=== PATIENT | female | born 1950 | race Caucasian/White ===

== ENCOUNTER 2023-05-13 11:53 | Emergency (ER) | payer MEDICARE, OTHER, SELFPAY ==
[2023-05-13 11:58] VITALS: BP 154/90
--- NOTE | 2023-05-13 12:58 | ED.GENMED ---
History of Present Illness
General
Chief Complaint: Abdominal Pain
Source: patient
Exam Limitations: none
Time Seen by Provider: 05/13/23 12:39
Travel History
Have you had any contact with someone who has COVID-19?: No
Do you have any symptoms of coronavirus? Fever > 100 degrees, chills, cough, shortness of breath, sore throat, loss of taste or smell, muscle aches, or headache?: No
History of Present Illness
History of Present Illness:
See MDM
Past History
Past History
ED Past Medical History: HTN
ED Past Surgical History: Appendectomy
Phy Exam
Physical Exam
Physical Exam:
See MDM
Course
Orders/Labs/Results
Orders:
Orders
05/13/23 12:50
CT Abd/pelvis W Iv Cont Urgent
Comment: hx pancreatitis, unable to toelrate PO
Reason For Exam: mid abd pain
0.9% Sodium Chloride 1000 ml [Nss] 1,000 ml IV BOLUS
HYDROmorphone [Dilaudid] 1 mg IV NOW STA
Ondansetron Injectable [Zofran] 4 mg IV NOW STA
05/13/23 12:55
Ketorolac [Toradol] 30 mg IV NOW STA
05/13/23 13:13
Basic Metabolic Panel Urgent
Complete Blood Count/With Diff Urgent
Lipase Urgent
05/13/23 15:26
Amoxicillin 875 mg/Clav 125 mg [Augmentin 875 mg/125 mg] 1 tablet PO NOW STA
Ondansetron Injectable [Zofran] 4 mg IV NOW STA
Abnormal Lab Results
05/13/23
13:13
RBC 3.89 L 10^6/uL
(4.20-5.40)
Hct 36.9 L %
(37.0-47.0)
MCH 31.9 H pg
(27.0-31.0)
05/13/23 13:13
05/13/23 13:13
Vital Signs
Initial and Last Documented VS:
Initial Vital Signs
Temp Pulse Resp BP Pulse Ox
97.9 F 75 16 154/90 97
05/13/23 11:58 05/13/23 11:58 05/13/23 11:58 05/13/23 11:58 05/13/23 11:58
Last Documented Vital Signs
Temp Pulse Resp BP Pulse Ox
97.9 F 75 16 154/90 97
05/13/23 11:58 05/13/23 11:58 05/13/23 11:58 05/13/23 11:58 05/13/23 11:58
MDM/Problems Addressed
Differential Diagnosis Includes:
HPI and MDM Narrative:
73-year-old female presenting with abdominal pain for the past several weeks. Patient states she believes is another pancreatitis attack. Patient states the same thing occurred several years ago. Denies alcohol use. Patient is having trouble
with food and water intake due to pain. Patient has chronic back pain and states her hydrocodone is not helping her abdominal pain.
Given her history, will obtain basic blood work including lipase levels. Given age and abdominal pain, will obtain CT abdomen/pelvis
Physical exam
General: Mildly uncomfortable
HEENT: protecting airway. Mild dry mucous membrane
Neck: appears supple
CV: No evidence of cyanosis
Resp: No accessory muscle use
Abd: Non-distended. Epigastric and mid abdominal pain. No rebound
Extremities: No deformities
Neuro: alert
Psych: Normal affect
Skin: Intact
Problems Addressed including Acute and Chronic Conditions affecting care:
1. Abdominal pain
Acuity: acute
Prognosis: stable
Details: Patient given IV pain medicine. Will obtain pancreas levels and CT
Updates
Lipase normal, CT references possible colitis. Patient does acknowledge cramping abdominal pain that is worse when she eats and mild diarrhea. Will start Augmentin and discussed the importance of PCP follow-up
Differential Diagnosis (but not limited to): Pancreatitis, constipation, colitis
Testing considered: Urinalysis but she denies complaints
Drug therapy (if applicable): OTC meds, please see d/c instruction regarding Rx drugs
Amount and/or Complexity of Data Reviewed
Clinical info obtained from: Patient
External data reviewed: N/A
Labs I independently reviewed (but not limited to): Lipase normal
Radiology: The CT scan was personally and independently reviewed. In addition, official CT report reviewed.
Pulse Ox: not hypoxic
EKG independently reviewed: N/A
Patient Relations Specialist: N/A
Critical Care: N/A
Risk of Complication:
Social Determinants of health: Good social support
Discussed with other providers: N/A
Escalation of Care includes Admit/Obs: After being observed in the Emergency Department, pt stable for discharge.
Occasional wrong word or 'sound a like' substitutions may have occurred due to the inherent limitations of voice recognition software. Read the chart carefully and recognize, using context, where substitutions have occurred.
*Critical Care Note
Total Time (30-74mins, 75-104mins- exclusive of procedures): Not Applicable
ED Attending Note
-
Portions of this chart may have been created with voice recognition software.� Occasional wrong word or��sound alike� substitutions may have occurred due to the inherent limitations of voice recognition software.
Discharge Plan
Departure
Patient Disposition: Home (Routine Discharge)
Date of Disposition: 05/13/23
Time of Disposition: 15:26
Patient with high blood pressure during this ER visit?: Yes
Discharge Problem:
Colitis
Instructions: BLOOD PRESSURE
Prescriptions:
New
ondansetron 4 mg Tablet,Disintegrating
4 mg PO BIDPRN PRN (Reason: nausea/vomiting) Qty: 14 0RF
amoxicillin-pot clavulanate 875-125 mg tablet
1 tab PO BID Qty: 14 0RF
No Action
cetirizine 10 MG tablet
10 mg PO DAILY PRN (Reason: hay fever)
hydrocodone-acetaminophen [[place]] 1 EACH tablet
1 ea PO Q6H PRN (Reason: neck pain)
quetiapine 100 MG tablet
100 mg PO BID
gabapentin 300 MG capsule
300 mg PO TID
lamotrigine 100 MG tablet
200 mg PO BID
ezetimibe-simvastatin 1 TABLET tablet
1 tab PO DAILY
duloxetine 20 MG capsule,delayed release(DR/EC)
20 mg PO BID
tizanidine 2 MG tablet
2 - 6 mg PO BID PRN (Reason: pain) Qty: 30 0RF
Referrals:
Kirill Norton CRNP [Family Provider] -
Activity Restrictions/Additional Instructions:
Please return for any worsening symptoms.
You may return at any time if you have further concerns.
Please follow up with your doctor at the first available appointment, preferably this week.
Thank you for choosing [facility].
Interventions
Interventions:
*Risk Screen - Suicide Last Done: 05/13/23 11:58
*Neglect/Abuse Screening Last Done: 05/13/23 11:58
*ED COVID-19 Vaccine History Last Done: 05/13/23 11:58
[2023-05-13] MEDS: ZOFRAN 4 MG IV ×2 (13:03→15:34)
[2023-05-13] MEDS: DILAUDID 1 MG IV (13:04)
[2023-05-13] MEDS: TORADOL 30 MG IV (13:04)
[2023-05-13] MEDS: NSS 1000 IV (13:05)
[2023-05-13 13:14] VITALS: BMI 25.8
[2023-05-13 13:32] LABS: % Basophils 0.6 % (0-2); % Eosinophils 1.4 % (0-6); % Immature Granulocytes 0.2 % (0-0.5); % Lymphocytes 21.8 % (20.5-51.1); % Monocytes 7.4 % (1.7-9.3); % Neutrophils 68.6 % (42.2-75.2); Absolute Eosinophils 0.1 10^3/uL (0-0.7); Absolute Lymphocytes 1.4 10^3/uL (1.2-3.4); Absolute Monocytes 0.5 10^3/uL (0.1-0.6); Absolute Neutrophils 4.4 10^3/uL (1.4-6.5); Hematocrit 36.9 % (37.0-47.0); Hemoglobin 12.4 g/dL (12.0-16.0); Mean Corp Hgb Conc. 33.6 g/dL (33.0-37.0); Mean Corpuscular Hgb 31.9 pg (27.0-31.0); Mean Corpuscular Volume 94.9 fL (81.0-99.0); Mean Platelet Volume 9.5 fL (7.4-10.4); Nucleated Red Blood Cells % 0 %; Platelet Count 276 10^3/uL (130-400); Red Blood Cell Count 3.89 10^6/uL (4.20-5.40); Red Cell Dist. Width 12.1 % (11.5-14.5); White Blood Cell Count 6.3 10^3/uL (4.8-10.8)
[2023-05-13 13:55] LABS: Blood Urea Nitrogen 14 mg/dl (7-17); Calcium 9.8 mg/dl (8.4-10.2); Carbon Dioxide 29 mmol/L (22-30); Chloride 102 mmol/L (98-107); Estimated Creatinine Clearance 58 ml/min; Glucose 95 mg/dl (70-99); Lipase 75 U/L (23-300); Sodium 135 mmol/L (135-145); eGFR > 60.00
[2023-05-13] MEDS: AUGMENTIN 875 MG/125 MG 1 TABLET PO (15:34)
== END 2023-05-13 16:13 | disposition home or self-care (01) ==
LOC: EMR 11:53
PROVIDERS: EMERGENCY PHYSICIAN Student in an Organized Health Care Education/Training Program; FAMILY PHYSICIAN Nurse Practitioner Adult Health
DX: K52.9 Noninfective gastroenteritis and colitis, unspecified (principal); I10 Essential (primary) hypertension
CPT/HCPCS: 99284; 96374; 96375 ×2; 96361; 96376; 74177; 80048; 83690; 85025; Q9967

== ENCOUNTER 2023-07-14 21:01 | Emergency (ER) | payer MEDICARE, OTHER, SELFPAY ==
[2023-07-14 21:23] VITALS: BMI 26.3
--- NOTE | 2023-07-14 21:35 | ED.GENMED ---
History of Present Illness
General
Chief Complaint: Head Injury
Time Seen by Provider: 07/14/23 21:17
Travel History
Have you had any contact with someone who has COVID-19?: No
Do you have any symptoms of coronavirus? Fever > 100 degrees, chills, cough, shortness of breath, sore throat, loss of taste or smell, muscle aches, or headache?: No
History of Present Illness
History of Present Illness:
HPI: 3 days ago, the patient was struck by a car door in the left side of the forehead. She had a headache at that time. She went to urgent care yesterday as she had some blurred vision and was felt to likely have a concussion. She saw PMD today
who suggested coming here. A few hours ago for about 15 minutes, she developed reddish clear discharge on the right nostril which is since resolved. She does not feel confused. She had a headache that was rather severe this morning but resolved
with her chronic [place] that she normally takes for history of cervical and other back surgeries.
EXAM:
GENERAL: Well appearing in no distress
CERVICAL SPINE: No midline c-spine tenderness with excellent AROM
HEAD: There is older appearing ecchymosis to the left side of the forehead
CHEST: No chest wall tenderness
LUNGS: No respiratory distress
ABDOMEN: No abdominal tenderness, no peritoneal signs
EXTREMITIES: Normal active range of motion, no tenderness
NEURO: Excellent strength all extremities, appropriate mental status, normal speech/language
TIME OF INITIAL ENCOUNTER: 9:30 PM
NUMBER AND COMPLEXITY OF PROBLEMS ADDRESSED AT THE ENCOUNTER
� Chronic conditions affecting care: Fibromyalgia, chronic back pain, high blood pressure, hyperlipidemia, hypothyroidism, bipolar
� Acute Exacerbation and/or Progression of Chronic Illness: This is an acute problem
� Differential Diagnosis includes: Intracranial hemorrhage, concussion, CSF leak unlikely
AMOUNT AND/OR COMPLEXITY OF DATA TO BE REVIEWED AND ANALYZED
� I performed an independent evaluation of and my interpretation is:
EKG:
CT: CT imaging suggest the possibility of normal pressure hydrocephalus as there is some dilatation of the ventricles, no bleeding noted
X-rays:
Laboratory Studies:
Other:
� Review of other/old records: I reviewed imaging studies�she had abdomen/pelvis CT imaging 2 months ago
� Clinical information was obtained by an independent historian: at bedside
� Prescriptions/Medications Considered but not given:
� Further testing considered but not performed:
RISK OF COMPLICATIONS AND/OR MORBIDITY OR MORTALITY OF PATIENT MANAGEMENT
� Social determinants of health affecting care: Lives at home
� Discussion with other providers:
� Escalation of care including admission/observation vs risk of discharge considered: Will obtain CT imaging given the intermittently severe headache along with reddish clear discharge that she had earlier from the nose.
Currently she has a NIH stroke scale of 0 and GCS 15. No focal findings on neurologic examination. On reassessment at 12:44 AM, the had no further episodes of discharge from the nostril. I informed patient of the CT findings. She has a normal
neurologic examination.
Past History
Past History
ED Past Medical History: HTN
ED Past Surgical History: Appendectomy
Phy Exam
Physical Exam
Physical Exam:
See HPI
Course
Orders/Labs/Results
Orders:
Orders
07/14/23 21:[address] [CT Head W/o Iv Contrast] Urgent
Comment:
Reason For Exam: head injury
07/14/23 22:18
Cervical Spine wo Contrast CT [CT Cervical Spine W/o Iv Contr] Urgent
Comment:
Reason For Exam: head injury, c/o neck pain
Vital Signs
Initial and Last Documented VS:
Initial Vital Signs
Temp Pulse Pulse Ox
98.1 F 77 99
07/14/23 21:08 07/14/23 21:08 07/14/23 21:08
Last Documented Vital Signs
Temp Pulse BP Pulse Ox
98.1 F 65 115/69 95
07/14/23 21:08 07/14/23 23:00 07/14/23 23:00 07/14/23 23:30
*Critical Care Note
Total Time (30-74mins, 75-104mins- exclusive of procedures): Not Applicable
ED Attending Note
-
Portions of this chart may have been created with voice recognition software.� Occasional wrong word or��sound alike� substitutions may have occurred due to the inherent limitations of voice recognition software.
Discharge Plan
Departure
Patient Disposition: Home (Routine Discharge)
Date of Disposition: 07/15/23
Time of Disposition: 00:43
Patient with high blood pressure during this ER visit?: No
Discharge Problem:
Head injury
Instructions: Head Injury in Adults (DC)
Prescriptions:
No Action
cetirizine 10 MG tablet
10 mg PO DAILY PRN (Reason: hay fever)
hydrocodone-acetaminophen [[place]] 1 EACH tablet
1 ea PO Q6H PRN (Reason: neck pain)
quetiapine 100 MG tablet
100 mg PO BID
gabapentin 300 MG capsule
300 mg PO TID
lamotrigine 100 MG tablet
200 mg PO BID
ezetimibe-simvastatin 1 TABLET tablet
1 tab PO DAILY
duloxetine 20 MG capsule,delayed release(DR/EC)
20 mg PO BID
tizanidine 2 MG tablet
2 - 6 mg PO BID PRN (Reason: pain) Qty: 30 0RF
ondansetron 4 mg Tablet,Disintegrating
4 mg PO BIDPRN PRN (Reason: nausea/vomiting) Qty: 14 0RF
amoxicillin-pot clavulanate 875-125 mg tablet
1 tab PO BID Qty: 14 0RF
Referrals:
Alex Maria MD [Active] - Follow up in 1 week
Kirill Norton CRNP [Family Provider] -
Activity Restrictions/Additional Instructions:
The CAT scan of the brain shows no bleeding. The CAT scan of the brain did show some dilation of the ventricle that could be seen with 'normal pressure hydrocephalus'. I have given the contact information for a neurologist�this would have nothing
to do with the injury. This could just be a normal variant. The CAT scan of the cervical spine shows no injury to the neck.
Interventions
Interventions:
*Risk Screen - Suicide Last Done: 07/14/23 21:08
*General Assessment Last Done: 07/14/23 21:08
*Neglect/Abuse Screening Last Done: 07/14/23 21:08
*ED COVID-19 Vaccine History Last Done: 07/14/23 21:23
ED- Neurological Assessment Last Done: 07/14/23 21:23
ED-Skin Assessment Last Done: 07/14/23 21:23
Discharge Date and Time
Print Language: GREEK
[2023-07-14 22:00] VITALS: BP 109/65
[2023-07-14 23:00] VITALS: BP 115/69
== END 2023-07-15 00:53 | disposition home or self-care (01) ==
LOC: EMR 21:01
PROVIDERS: EMERGENCY PHYSICIAN Emergency Medicine; FAMILY PHYSICIAN Nurse Practitioner Adult Health
DX: S09.90XA Unspecified injury of head, initial encounter (principal); W20.8XXA Other cause of strike by thrown, projected or falling object, initial encounter
CPT/HCPCS: 99284; 70450; 72125

== ENCOUNTER → 2024-05-23 10:54 | Outpatient (REF) | payer MEDICARE, OTHER, SELFPAY | LOC: HWRAD 10:54 | PROVIDERS: ATTENDING PHYSICIAN Internal Medicine | DX: R10.9 Unspecified abdominal pain (principal) | CPT/HCPCS: 71101; 76775 ==

== ENCOUNTER → 2024-05-28 12:38 | Outpatient (REF) | payer MEDICARE, OTHER, SELFPAY | LOC: RCS 12:38 | PROVIDERS: ATTENDING PHYSICIAN Nurse Practitioner; FAMILY PHYSICIAN Nurse Practitioner Adult Health | DX: R06.09 Other forms of dyspnea (principal) | CPT/HCPCS: 93306 ==

== ENCOUNTER 2024-06-29 | Emergency (ER) | payer MEDICARE, OTHER, SELFPAY ==
[2024-06-29 00:07] VITALS: BP 133/82
[2024-06-29 00:24] VITALS: BP 134/78
--- NOTE | 2024-06-29 00:46 | ED.GENMED ---
History of Present Illness
General
Chief Complaint: Chest Pain
Source: patient
Exam Limitations: none
Time Seen by Provider: 06/29/24 00:14
Nursing documentation reviewed up to this point in time: agreed with
History of Present Illness
History of Present Illness:
pt is a 74 y/o F with h/o htn, hld, chronic back pain, pancreatitis remotely (unclear cause)
here with epigastricp ain into her chest tonight and wrapping around RUQ to back that reminds her of pancreatitis
started after eating dinner 7 pm tonight
she had cholecystectomy in the past
previuos episode cp 2 years ago , pt had cath that was clean, followed by dr. daily
she has had mild nausea, no vomiting
tried pepto without relief
pain is 8/10
no h/o bowel obstruction
has had previuos inguinal hernia repairs, sheryl, hysterectomy
Past History
Past History
ED Past Medical History: HTN
ED Past Surgical History: Appendectomy
Social History
Tobacco: Non-smoker
Alcohol: None
Drug: None
Personal:
Living: with family
Review of Systems
Review of Systems
Allergies reviewed?: Yes
All Other Systems: Not applicable
Phy Exam
Physical Exam
Physical Exam:
GENERAL: Alert , looks uncomfortable slightly
EYE: pupils equal and reactive
NECK: Supple
ENT: o/p clr, mmm.
CARDIAC: Regular rate and rhythm . No murmur appreciated
LUNGS: Clear breath sounds bilaterally, no acute respiratory distress, no wheezes/rales/rhonchi
ABDOMEN: Soft, mild epigastric tenderness, no r/g, no cvat, normal bowel sounds
NEUROLOGICAL: Alert and oriented, no focal neuro deficits
SKIN: Warm and dry, skin intact. Slightly pale, not diaphoretic
MUSCULOSKELETAL: No edema, well perfused. neg sarah's sign
PSYCH: Normal and appropriate interaction.
Scores
Heart Score for Chest Pain Patients
STEMI patient?: No
History: Moderately Suspicious
ECG: Normal
Age: >/= 65 years
Risk Factors: 1 or 2 Risk Factors
Troponin: </= Normal Limit
Heart Score for Chest Pain Patients: 4
Heart Score Risk: 20.3% MACE over next 6 weeks
Course
Orders/Labs/Results
Orders:
Orders
06/29/24 00:11
Electrocardiogram (*1) Urgent
Reason for Study: Chest Pain
EKG- Treatment ONCE
06/29/24 00:45
HYDROmorphone [Dilaudid] 0.5 mg IV NOW STA
Ondansetron Injectable [Zofran] 4 mg IV NOW STA
Pantoprazole [Protonix IV] 40 mg IV NOW STA
06/29/24 00:49
Complete Blood Count/With Diff Urgent
Comprehensive Metabolic Panel Urgent
Lipase Urgent
Troponin I Urgent
06/29/24 01:21
Iohexol [Omnipaque] See Protocol PO NOW STA
06/29/24 01:29
CT Chest/abd/pelvis Angio W/wo Urgent
Comment:
Reason For Exam: chest pain epigastirc pain to the back
06/29/24 02:22
EKG- Treatment ONCE
06/29/24 03:00
Electrocardiogram (*1) Urgent
Reason for Study: Chest Pain
06/29/24 03:02
Troponin I Urgent
Abnormal Lab Results
06/29/24
00:49
WBC 12.3 H 10^3/uL
(4.8-10.8)
RBC 3.42 L 10^6/uL
(4.20-5.40)
Hgb 11.4 L g/dL
(12.0-16.0)
Hct 32.6 L %
(37.0-47.0)
MCH 33.3 H pg
(27.0-31.0)
Abs Immat Gran (auto) 0.1 H 10^3/uL
(0-0.05)
Absolute Neuts (auto) 10.9 H 10^3/uL
(1.4-6.5)
Absolute Lymphs (auto) 0.4 L 10^3/uL
(1.2-3.4)
Absolute Monos (auto) 0.7 H 10^3/uL
(0.1-0.6)
Neutrophils % 89.1 H %
(42.2-75.2)
Lymphocytes % 3.6 L %
(20.5-51.1)
Sodium 134 L mmol/L
(135-145)
BUN 25 H mg/dl
(7-17)
Glucose 117 H mg/dl
(70-99)
Total Protein 5.8 L g/dl
(6.3-8.2)
06/29/24 00:49
06/29/24 00:49
Vital Signs
Initial and Last Documented VS:
Initial Vital Signs
Temp Pulse Resp BP Pulse Ox
36.8 C 82 20 133/82 96
06/29/24 00:07 06/29/24 00:07 06/29/24 00:07 06/29/24 00:07 06/29/24 00:07
Last Documented Vital Signs
Temp Pulse Resp BP Pulse Ox
36.7 C 71 12 109/64 95
06/29/24 00:49 06/29/24 04:30 06/29/24 04:30 06/29/24 04:00 06/29/24 04:30
MDM/Problems Addressed
Differential Diagnosis Includes:
pancreatitis, aortic dissection, PE, ACS, bowel obstruction, gastritis
MDM/Problems Addressed:
74 y/o F
remote pancreatiis
multiple abd surgeries previously
card cath clean 2 years ago
epigastric pain to chest and back at 7 pm
worsening gradually
pt is uncomofrtable
pain reminds her of her pancreatitis
she denies alcohol use
no vomiting
stable bp
ekg nonischemic
w/u with labs show mild leukocytosis, neg trop;
d/w ed attending
will ct c/a/p
at minimum pt will need reapt trop CT discussed with radiologist. Patient has findings
Of mild enteritis, otherwise no aortic syndrome or PE. Patient feels much more comfortable after pain meds. Discussed with ED attending. Will discharge pending second troponin and EKG at 3 AM.
*Critical Care Note
Total Time (30-74mins, 75-104mins- exclusive of procedures): Not Applicable
ED Attending Note
-
Portions of this chart may have been created with voice recognition software.� Occasional wrong word or��sound alike� substitutions may have occurred due to the inherent limitations of voice recognition software.
Discharge Plan
Departure
Patient Disposition: Home (Routine Discharge)
Date of Disposition: 06/29/24
Time of Disposition: 04:24
Patient with high blood pressure during this ER visit?: No
Discharge Problem:
Chest pain
Instructions: Chest Pain DCA Follow Up
Prescriptions:
No Action
cetirizine 10 MG tablet
10 mg PO DAILY PRN (Reason: hay fever)
hydrocodone-acetaminophen [[place]] 1 EACH tablet
1 ea PO Q6H PRN (Reason: neck pain)
quetiapine 100 MG tablet
100 mg PO BID
gabapentin 300 MG capsule
300 mg PO TID
lamotrigine 100 MG tablet
200 mg PO BID
ezetimibe-simvastatin 1 TABLET tablet
1 tab PO DAILY
duloxetine 20 MG capsule,delayed release(DR/EC)
20 mg PO BID
tizanidine 2 MG tablet
2 - 6 mg PO BID PRN (Reason: pain) Qty: 30 0RF
ondansetron 4 mg Tablet,Disintegrating
4 mg PO BIDPRN PRN (Reason: nausea/vomiting) Qty: 14 0RF
amoxicillin-pot clavulanate 875-125 mg tablet
1 tab PO BID Qty: 14 0RF
Referrals:
Shahbaz Milton MD [Family Provider] -
Interventions
Interventions:
*Risk Screen - Suicide Last Done: 06/29/24 00:07
*General Assessment Last Done: 06/29/24 01:05
*Neglect/Abuse Screening Last Done: 06/29/24 00:07
*ED- Fall Risk Assessment Last Done: 06/29/24 00:07
*ED COVID-19 Vaccine History Last Done: 06/29/24 00:07
*Nursing Disposition Last Done: 06/29/24 04:46
ED- Cardiac Assessment Last Done: 06/29/24 01:06
Discharge Date and Time
Discharge Date/Time: 06/29/24 04:47
Print Language: DJIBOUTIAN
[2024-06-29 00:57] VITALS: BMI 23.9
[2024-06-29] MEDS: ZOFRAN 4 MG IV (00:58)
[2024-06-29] MEDS: DILAUDID 0.5 MG IV (00:58)
[2024-06-29 00:59] LABS: % Basophils 0.2 % (0-2); % Eosinophils 0.8 % (0-6); % Immature Granulocytes 0.4 % (0-0.5); % Lymphocytes 3.6 % (20.5-51.1); % Monocytes 5.9 % (1.7-9.3); % Neutrophils 89.1 % (42.2-75.2); Absolute Eosinophils 0.1 10^3/uL (0-0.7); Absolute Immature Granulocytes 0.1 10^3/uL (0-0.05); Absolute Lymphocytes 0.4 10^3/uL (1.2-3.4); Absolute Monocytes 0.7 10^3/uL (0.1-0.6); Absolute Neutrophils 10.9 10^3/uL (1.4-6.5); Hematocrit 32.6 % (37.0-47.0); Hemoglobin 11.4 g/dL (12.0-16.0); Mean Corpuscular Hgb 33.3 pg (27.0-31.0); Mean Corpuscular Volume 95.3 fL (81.0-99.0); Mean Platelet Volume 9.7 fL (7.4-10.4); Nucleated Red Blood Cells % 0 %; Platelet Count 191 10^3/uL (130-400); Red Blood Cell Count 3.42 10^6/uL (4.20-5.40); Red Cell Dist. Width 12.4 % (11.5-14.5); White Blood Cell Count 12.3 10^3/uL (4.8-10.8)
[2024-06-29] MEDS: PROTONIX IV 40 MG IV (00:59)
[2024-06-29 01:01] VITALS: BP 132/74
[2024-06-29 01:10] LABS: ALT (SGPT) 24 U/L (0-35); AST (SGOT) 29 U/L (14-36); Albumin 3.9 g/dl (3.5-5.0); Alkaline Phosphatase 47 U/L (38-126); Blood Urea Nitrogen 25 mg/dl (7-17); Calcium 9.6 mg/dl (8.4-10.2); Carbon Dioxide 26 mmol/L (22-30); Chloride 103 mmol/L (98-107); Estimated Creatinine Clearance 51 ml/min; Glucose 117 mg/dl (70-99); Lipase 56 U/L (23-300); Potassium 4.2 mmol/L (3.5-5.1); Sodium 134 mmol/L (135-145); Total Bilirubin 0.5 mg/dl (0.2-1.3); Total Protein 5.8 g/dl (6.3-8.2); eGFR > 60.00
[2024-06-29 01:38] LABS: Troponin I < 0.012 ng/ml
[2024-06-29 02:00] VITALS: BP 133/71
[2024-06-29 03:00] VITALS: BP 117/60
[2024-06-29 04:00] VITALS: BP 109/64
[2024-06-29 04:16] LABS: Troponin I < 0.012 ng/ml
== END 2024-06-29 04:47 | disposition home or self-care (01) ==
LOC: EMR
PROVIDERS: Physician Assistant; EMERGENCY PHYSICIAN Student in an Organized Health Care Education/Training Program; FAMILY PHYSICIAN Internal Medicine
DX: R07.9 Chest pain, unspecified (principal); R10.13 Epigastric pain; E78.5 Hyperlipidemia, unspecified; I10 Essential (primary) hypertension; G89.29 Other chronic pain; Z90.49 Acquired absence of other specified parts of digestive tract
CPT/HCPCS: 96374; 96375; 99284; 71275; 74174; 80053; 83690; 84484; 85025; 93005; Q9967

== ENCOUNTER → 2025-01-15 10:32 | Outpatient (REF) | payer MEDICARE, OTHER, SELFPAY | LOC: RAD 10:32 | PROVIDERS: ATTENDING PHYSICIAN Nurse Practitioner Acute Care; FAMILY PHYSICIAN Internal Medicine | DX: G89.29 Other chronic pain (principal); M54.9 Dorsalgia, unspecified; M25.552 Pain in left hip; Z91.81 History of falling | CPT/HCPCS: 72040; 72072; 72100; 73502 ==

== ENCOUNTER → 2025-01-17 11:28 | Outpatient (REF) | payer MEDICARE, OTHER, SELFPAY | LOC: RAD 11:28 | PROVIDERS: ATTENDING PHYSICIAN Nurse Practitioner Acute Care | DX: M25.551 Pain in right hip (principal) | CPT/HCPCS: 73502 ==

== ENCOUNTER 2025-04-10 12:44 | Outpatient (RCR) | payer MEDICARE, OTHER, SELFPAY | END 2025-04-10 23:59 | disposition home or self-care (01) | LOC: RPT 12:44 | PROVIDERS: ATTENDING PHYSICIAN Orthopaedic Surgery; FAMILY PHYSICIAN Internal Medicine | DX: M48.062 Spinal stenosis, lumbar region with neurogenic claudication (principal); Z73.6 Limitation of activities due to disability; M62.81 Muscle weakness (generalized); M79.605 Pain in left leg; M79.604 Pain in right leg; R26.89 Other abnormalities of gait and mobility | CPT/HCPCS: 97010; 97110; 97112; 97162 ==